=== PATIENT | female | born 1955 | race Caucasian/White ===

== ENCOUNTER 2020-12-25 12:43 | Emergency (ER) | payer MEDICARE ==
[2020-12-25 14:58] LABS: HEMOGLOBIN 10.3 gm/dl (12.3-15.3); RED BLOOD COUNT 3.68 M/UL (4.00-5.10); WHITE BLOOD COUNT 10.4 K/UL (4.5-11.0)
[2020-12-25 15:33] LABS: BUN/CREATININE RATIO 6 (0-10)
== END 2020-12-25 20:02 | disposition home or self-care (01) ==
LOC: ER1 12:43
PROVIDERS: Physician Assistant
DX: I95.1 Orthostatic hypotension (principal); E87.6 Hypokalemia; E11.9 Type 2 diabetes mellitus without complications; Z88.5 Allergy status to narcotic agent; Z20.822 Contact with and (suspected) exposure to COVID-19
CPT/HCPCS: 36415; 80053; 81001; 82550; 82553; 83874; 84484; 85025; 93005; 96374; 99285; J2405; U0002

== ENCOUNTER → 2021-02-25 | Outpatient (CLI) | payer MEDICARE ==
[~2021-02-25] MED LIST: AMLODIPINE BESYL5 MG PO; AUGMENTIN 875-1 EACH PO; LIPITOR10 MG PO; NEURONTIN300 MG PO; OMNICEF 300 MG300 MG PO; PREDNISONE 1 MG1 MG PO; PROTONIX 40 MG40 M1 PO; ZOFRAN ODT 4 MG4 MG PO
== END ==
LOC: US 10:30
DX: D50.9 Iron deficiency anemia, unspecified (principal); D47.3 Essential (hemorrhagic) thrombocythemia; D51.8 Other vitamin B12 deficiency anemias; K90.9 Intestinal malabsorption, unspecified
CPT/HCPCS: 76641-RT

== ENCOUNTER 2021-03-28 10:27 | Emergency (ER) | payer MEDICARE ==
[2021-03-28 11:05] LABS: HEMOGLOBIN 12.1 gm/dl (12.3-15.3); RED BLOOD COUNT 3.81 M/UL (4.00-5.10)
[2021-03-28 11:40] LABS: BUN/CREATININE RATIO 9 (0-10)
[2021-03-28] MEDS ORDERED: ZOFRAN ODT 4 MG4 MG PO (17:38)
[2021-03-28] MEDS ORDERED: OMNICEF 300 MG300 MG PO (17:38)
== END 2021-03-28 18:04 | disposition home or self-care (01) ==
LOC: ER1 10:27
PROVIDERS: Nurse Practitioner
DX: N12 Tubulo-interstitial nephritis, not specified as acute or chronic (principal); N39.0 Urinary tract infection, site not specified; E11.9 Type 2 diabetes mellitus without complications; M19.90 Unspecified osteoarthritis, unspecified site; F17.210 Nicotine dependence, cigarettes, uncomplicated; Z90.49 Acquired absence of other specified parts of digestive tract; Z85.3 Personal history of malignant neoplasm of breast; Z90.89 Acquired absence of other organs; Z88.5 Allergy status to narcotic agent; Z79.899 Other long term (current) drug therapy
CPT/HCPCS: 80053; 81001; 82550; 82553; 83605; 83690; 84484; 85025; 87040; 87077; 87086; 87186; 93005; 99284; J0500; J0696; J1885; J2405; Q9967

== ENCOUNTER 2021-05-30 14:26 | Inpatient (IN) | payer MEDICARE ==
[~2021-05-30] VITALS: Ht 157.5 cm; Wt 57.7 kg
[~2021-05-30 14:26] MED LIST changes: -AMLODIPINE BESYL5 MG PO; -AUGMENTIN 875-1 EACH PO; -LIPITOR10 MG PO; -NEURONTIN300 MG PO; -PREDNISONE 1 MG1 MG PO; -PROTONIX 40 MG40 M1 PO
[2021-05-30 15:37] LABS: HEMOGLOBIN 9.7 gm/dl (12.3-15.3); RED BLOOD COUNT 3.13 M/UL (4.00-5.10)
[2021-05-31 04:03] LABS: WHITE BLOOD COUNT 9.2 K/UL (4.5-11.0)
[2021-05-31 04:04] LABS: HEMOGLOBIN 7.2 gm/dl (12.3-15.3); RED BLOOD COUNT 2.32 M/UL (4.00-5.10)
[2021-05-31] MEDS ORDERED: NEURONTIN300 MG PO (11:02)
[2021-05-31] MEDS ORDERED: LIPITOR10 MG PO (13:17)
[2021-06-01 04:39] LABS: RED BLOOD COUNT 2.29 M/UL (4.00-5.10)
[2021-06-01 04:55] LABS: WHITE BLOOD COUNT 11.6 K/UL (4.5-11.0)
--- NOTE | 2021-06-01 05:49 | NUR ---
PATIENTS HGB IS 7.0 AND GAVE ORDERS TO TRANSFUSE. THE PATIENT IS CONFUSED AND CANNOT OBTAIN CONSENT FROM HER. I ATTEMPTED TO CALL HER PERSON TO NOTIFY WHICH IS HER SISTER AND HER NEXT OF KIN WHO IS ALSO HER EMERGENCY CONTACT. NO ANSWER FOR EITHER NUMBER.
[2021-06-02 05:24] LABS: HEMOGLOBIN 11.8 gm/dl (12.3-15.3); RED BLOOD COUNT 3.9 M/UL (4.00-5.10); WHITE BLOOD COUNT 7.2 K/UL (4.5-11.0)
[2021-06-03 11:33] LABS: RED BLOOD COUNT 4.28 M/UL (4.00-5.10); WHITE BLOOD COUNT 7.3 K/UL (4.5-11.0)
[2021-06-04 04:23] LABS: HEMOGLOBIN 11.2 gm/dl (12.3-15.3); WHITE BLOOD COUNT 6.8 K/UL (4.5-11.0)
[2021-06-04 04:30] LABS: RED BLOOD COUNT 3.79 M/UL (4.00-5.10)
[2021-06-05 00:43] LABS: HEMOGLOBIN 11.6 gm/dl (12.3-15.3); RED BLOOD COUNT 3.89 M/UL (4.00-5.10)
[2021-06-06 02:28] LABS: HEMOGLOBIN 11.1 gm/dl (12.3-15.3); RED BLOOD COUNT 3.81 M/UL (4.00-5.10); WHITE BLOOD COUNT 8.5 K/UL (4.5-11.0)
[2021-06-07 05:04] LABS: HEMOGLOBIN 11.1 gm/dl (12.3-15.3); RED BLOOD COUNT 3.73 M/UL (4.00-5.10); WHITE BLOOD COUNT 8.1 K/UL (4.5-11.0)
[2021-06-07] MEDS ORDERED: PROTONIX 40 MG40 M1 PO (10:59)
[2021-06-07] MEDS ORDERED: PREDNISONE 1 MG1 MG PO (11:04)
[2021-06-07] MEDS ORDERED: AMLODIPINE BESYL5 MG PO (11:04)
[2021-06-07] MEDS ORDERED: AUGMENTIN 875-1 EACH PO (11:10)
== END 2021-06-07 15:30 | disposition home or self-care (01) | DRG 871 ==
LOC: ER1 14:26 → CDU 18:35 → PROG CARE 18:35 → M/S 06-06 17:39
PROVIDERS: Emergency Medicine; Internal Medicine; Internal Medicine Nephrology; ADMIT Internal Medicine
PROC: 30233N1 Transfusion of Nonautologous Red Blood Cells into Peripheral Vein, Percutaneous Approach (ICD-10-PCS; principal; 2021-06-01)
PROC: 30233N1 Transfusion of Nonautologous Red Blood Cells into Peripheral Vein, Percutaneous Approach (ICD-10-PCS; 2021-06-02)
DX: A41.9 Sepsis, unspecified organism (principal); G93.41 Metabolic encephalopathy; J18.9 Pneumonia, unspecified organism; R65.21 Severe sepsis with septic shock; E43 Unspecified severe protein-calorie malnutrition; E27.40 Unspecified adrenocortical insufficiency; E87.2 Acidosis; N17.9 Acute kidney failure, unspecified; Z20.822 Contact with and (suspected) exposure to COVID-19; M06.9 Rheumatoid arthritis, unspecified; E87.6 Hypokalemia; D63.8 Anemia in other chronic diseases classified elsewhere; E83.51 Hypocalcemia; F17.210 Nicotine dependence, cigarettes, uncomplicated; R68.0 Hypothermia, not associated with low environmental temperature; E11.9 Type 2 diabetes mellitus without complications; Z85.3 Personal history of malignant neoplasm of breast; Z88.5 Allergy status to narcotic agent; Z79.899 Other long term (current) drug therapy; Z68.21 Body mass index [BMI] 21.0-21.9, adult; Z87.440 Personal history of urinary (tract) infections
CPT/HCPCS: 36415; 36430; 36600; 51701; 71045; 71275; 80048; 80053; 80202; 81001; 82009; 82533; 82550; 82553; 82570; 82728; 82803; 82947; 82962; 83036; 83540; 83550; 83605; 83690; 83735; 83874; 83880; 84100; 84132; 84300; 84439; 84443; 84484; 85025; 85610; 85730; 86140; 86850; 86900; 86901; 86920; 87040; 87086; 89050; 93005; 94760; 97116-GP-CQ; 97161; 97530-GP-CQ; 99284; C9113; J0610; J1630; J1650; J1720; J2270; J2405; J2543; J3370; J3480; J3486; J7030; J7050; J7070; P9016; Q9965; U0002

== ENCOUNTER → 2021-06-13 | Outpatient (CLI) | payer MEDICARE ==
[~2021-06-13] MED LIST changes: +AMLODIPINE BESYL5 MG PO; +AUGMENTIN 875-1 EACH PO; +LIPITOR10 MG PO; +NEURONTIN300 MG PO; +PREDNISONE 1 MG1 MG PO; +PROTONIX 40 MG40 M1 PO
== END ==
LOC: KOH-I 15:51
DX: R60.9 Edema, unspecified (principal); D50.9 Iron deficiency anemia, unspecified; D47.3 Essential (hemorrhagic) thrombocythemia; K90.9 Intestinal malabsorption, unspecified; D51.8 Other vitamin B12 deficiency anemias
CPT/HCPCS: 93970

== ENCOUNTER → 2021-07-24 | Outpatient (CLI) | payer MEDICARE | LOC: HEART 5 13:00 | DX: R00.0 Tachycardia, unspecified (principal) | CPT/HCPCS: 93306 ==

== ENCOUNTER → 2021-08-22 | Outpatient (CLI) | payer MEDICARE ==
[~2021-08-22] VITALS: Ht 157.5 cm; Wt 44.5 kg
[2021-08-22 07:46] LABS: BUN/CREATININE RATIO 2 (0-10)
== END ==
LOC: OPSV 08-19 07:00
PROVIDERS: Internal Medicine Nephrology
DX: E27.40 Unspecified adrenocortical insufficiency (principal); E83.42 Hypomagnesemia
CPT/HCPCS: 36415; 80048; 82533; 83735; 96374; J0834

== ENCOUNTER → 2021-08-26 | Outpatient (CLI) | payer MEDICARE | LOC: MAMO 12:23 → US 13:30 | DX: Z12.31 Encounter for screening mammogram for malignant neoplasm of breast (principal); Z90.11 Acquired absence of right breast and nipple; Z85.3 Personal history of malignant neoplasm of breast; D50.9 Iron deficiency anemia, unspecified; D47.3 Essential (hemorrhagic) thrombocythemia; K90.9 Intestinal malabsorption, unspecified; D51.8 Other vitamin B12 deficiency anemias | CPT/HCPCS: 77063; 77067 ==

== ENCOUNTER → 2021-08-30 | Outpatient (CLI) | payer MEDICARE | LOC: US 13:06 | DX: C50.919 Malignant neoplasm of unspecified site of unspecified female breast (principal); D50.9 Iron deficiency anemia, unspecified; D47.3 Essential (hemorrhagic) thrombocythemia; D51.8 Other vitamin B12 deficiency anemias; K90.9 Intestinal malabsorption, unspecified; Z90.710 Acquired absence of both cervix and uterus; Z90.11 Acquired absence of right breast and nipple | CPT/HCPCS: 76641-RT ==

== ENCOUNTER → 2021-12-17 | Outpatient (CLI) | payer MEDICARE ==
[2021-12-17 17:37] LABS: HEMOGLOBIN 6.5 gm/dl (12.3-15.3)
== END ==
LOC: LAB 16:49
PROVIDERS: Internal Medicine Hematology & Oncology
DX: D64.9 Anemia, unspecified (principal)
CPT/HCPCS: 36415; 82525; 84630; 85014; 85018; 86850; 86900; 86901; 86920; P9016

== ENCOUNTER → 2021-12-18 | Outpatient (CLI) | payer MEDICARE ==
[~2021-12-18] VITALS: Ht 157.5 cm; Wt 44.5 kg
== END ==
LOC: OPSV 08:56
DX: D64.9 Anemia, unspecified (principal)
CPT/HCPCS: 36430; 96375; J1940; J7050

== ENCOUNTER → 2021-12-26 | Outpatient (CLI) | payer MEDICARE ==
[~2021-12-26] VITALS: Ht 157.5 cm; Wt 52.6 kg
== END ==
LOC: EROP 12:18
DX: Z23 Encounter for immunization (principal); U07.1 COVID-19; E11.9 Type 2 diabetes mellitus without complications; I10 Essential (primary) hypertension; D84.9 Immunodeficiency, unspecified; J98.4 Other disorders of lung
CPT/HCPCS: M0247; Q0247

== ENCOUNTER → 2022-01-20 | Outpatient (CLI) | payer MEDICARE | LOC: KOH-I 09:50 | DX: G57.71 Causalgia of right lower limb (principal); M51.36 Other intervertebral disc degeneration, lumbar region; M48.061 Spinal stenosis, lumbar region without neurogenic claudication; M48.07 Spinal stenosis, lumbosacral region; M51.27 Other intervertebral disc displacement, lumbosacral region; M47.816 Spondylosis without myelopathy or radiculopathy, lumbar region; M51.87 Other intervertebral disc disorders, lumbosacral region | CPT/HCPCS: 72148 ==

== ENCOUNTER → 2022-01-21 | Outpatient (CLI) | payer MEDICARE ==
[2022-01-21 12:45] LABS: HEMOGLOBIN 6.4 gm/dl (12.3-15.3)
== END ==
LOC: LAB 12:07
PROVIDERS: Internal Medicine Hematology & Oncology
DX: D50.9 Iron deficiency anemia, unspecified (principal)
CPT/HCPCS: 36415; 85014; 85018; 86850; 86900; 86901; 86920; P9016

== ENCOUNTER → 2022-01-22 | Outpatient (CLI) | payer MEDICARE | LOC: OPSV 07:41 | DX: D50.9 Iron deficiency anemia, unspecified (principal) | CPT/HCPCS: 36430; 96375; J1940 ==

== ENCOUNTER → 2022-02-12 | Day surgery (SDC) | payer MEDICARE ==
[~2022-02-12] MED LIST changes: +ARIMIDEX1 MG PO; +CALCIUM500 MG PO; +FOLIC ACID0.8 MG PO; +IRON PO; +MAGNESIUM PO; +NEXIUM PO; +VITAMIN B12 INJ INJ; +VITAMIN C PO; +VITAMIN D310 MC2 PO; +ZINC PO; +[UNRECOGNIZED DRUG - REMARK] INJ
== END | disposition home or self-care (01) ==
LOC: OR 08:17
PROVIDERS: Internal Medicine Gastroenterology
PROC: 0W3P8ZZ Control Bleeding in Gastrointestinal Tract, Via Natural or Artificial Opening Endoscopic (ICD-10-PCS; principal; 2022-02-12 13:00)
DX: D50.9 Iron deficiency anemia, unspecified (principal); Z20.822 Contact with and (suspected) exposure to COVID-19; Q27.39 Arteriovenous malformation, other site; I10 Essential (primary) hypertension; E11.9 Type 2 diabetes mellitus without complications; E78.5 Hyperlipidemia, unspecified; K21.9 Gastro-esophageal reflux disease without esophagitis; M19.90 Unspecified osteoarthritis, unspecified site; F17.210 Nicotine dependence, cigarettes, uncomplicated; Z79.899 Other long term (current) drug therapy; Z88.5 Allergy status to narcotic agent
CPT/HCPCS: 82962; J2704; J7040

== ENCOUNTER → 2022-02-26 | Outpatient (CLI) | payer MEDICARE ==
[2022-02-26 13:27] LABS: HEMOGLOBIN 6.6 gm/dl (12.3-15.3)
== END ==
LOC: LAB 12:31
PROVIDERS: Internal Medicine Hematology & Oncology
DX: D64.9 Anemia, unspecified (principal); R53.83 Other fatigue
CPT/HCPCS: 36415; 85014; 85018; 86850; 86900; 86901; 86920; P9016

== ENCOUNTER → 2022-03-05 | Outpatient (CLI) | payer MEDICARE | LOC: LAB 11:30 | DX: Z51.81 Encounter for therapeutic drug level monitoring (principal); G57.71 Causalgia of right lower limb; Z79.899 Other long term (current) drug therapy | CPT/HCPCS: 36415; 83036; 87081 ==

== ENCOUNTER → 2022-04-03 | Day surgery (SDC) | payer MEDICARE ==
[~2022-04-03] MED LIST changes: +ASPIRIN325 MG PO
== END | disposition home or self-care (01) ==
LOC: OR 07:16
PROVIDERS: Internal Medicine Gastroenterology
PROC: 0W3P8ZZ Control Bleeding in Gastrointestinal Tract, Via Natural or Artificial Opening Endoscopic (ICD-10-PCS; principal; 2022-04-03 11:45)
PROC: 0W3P8ZZ Control Bleeding in Gastrointestinal Tract, Via Natural or Artificial Opening Endoscopic (ICD-10-PCS; 2022-04-03 11:45)
DX: K31.819 Angiodysplasia of stomach and duodenum without bleeding (principal); K55.21 Angiodysplasia of colon with hemorrhage; K64.1 Second degree hemorrhoids; K64.4 Residual hemorrhoidal skin tags; D50.9 Iron deficiency anemia, unspecified; E11.9 Type 2 diabetes mellitus without complications; I10 Essential (primary) hypertension; K21.9 Gastro-esophageal reflux disease without esophagitis; E78.5 Hyperlipidemia, unspecified; F17.210 Nicotine dependence, cigarettes, uncomplicated; Z20.822 Contact with and (suspected) exposure to COVID-19; Z79.82 Long term (current) use of aspirin; Z79.899 Other long term (current) drug therapy; Z88.5 Allergy status to narcotic agent
CPT/HCPCS: J2704; J7040

== ENCOUNTER → 2022-07-16 | Outpatient (CLI) | payer MEDICARE ==
[~2022-07-16] VITALS: Ht 157.5 cm; Wt 44.5 kg
[2022-07-16 12:06] LABS: HEMOGLOBIN 6.1 gm/dl (12.3-15.3)
== END ==
LOC: OPSV 11:24
PROVIDERS: Internal Medicine Hematology & Oncology
DX: D50.9 Iron deficiency anemia, unspecified (principal); R53.83 Other fatigue
CPT/HCPCS: 36430; 82728; 83010; 83540; 83550; 83615; 85014; 85018; 85045; 86850; 86900; 86901; 86920; 96375; J1940; P9016

== ENCOUNTER → 2022-07-17 | Day surgery (SDC) | payer MEDICARE | END | disposition home or self-care (01) | LOC: OR 08:40 | PROVIDERS: Internal Medicine Gastroenterology | PROC: 0DB68ZX Excision of Stomach, Via Natural or Artificial Opening Endoscopic, Diagnostic (ICD-10-PCS; 2022-07-17) | PROC: 0DB58ZX Excision of Esophagus, Via Natural or Artificial Opening Endoscopic, Diagnostic (ICD-10-PCS; principal; 2022-07-17 11:40) | DX: D62 Acute posthemorrhagic anemia (principal); B37.81 Candidal esophagitis; K31.89 Other diseases of stomach and duodenum; K31.7 Polyp of stomach and duodenum; K21.00 Gastro-esophageal reflux disease with esophagitis, without bleeding; E11.9 Type 2 diabetes mellitus without complications; I10 Essential (primary) hypertension; M06.9 Rheumatoid arthritis, unspecified; F17.200 Nicotine dependence, unspecified, uncomplicated; Z79.899 Other long term (current) drug therapy; Z88.5 Allergy status to narcotic agent; Z88.6 Allergy status to analgesic agent | CPT/HCPCS: J7040 ==

== ENCOUNTER → 2022-07-31 | Outpatient (CLI) | payer MEDICARE | LOC: EXRD 11:30 | DX: D50.9 Iron deficiency anemia, unspecified (principal); D47.3 Essential (hemorrhagic) thrombocythemia; K90.9 Intestinal malabsorption, unspecified; D51.8 Other vitamin B12 deficiency anemias | CPT/HCPCS: 77080 ==